=== PATIENT | female | born 1990 | race American Indian/Alaskan Native ===

== ENCOUNTER 2017-10-06 02:01 | Emergency (ER) | payer SELFPAY ==
[2017-10-06] MEDS ORDERED: MOTRIN ONE (02:45)
[2017-10-06 02:48] VITALS: BP 137/86
[2017-10-06] MEDS ORDERED: MOTRIN PO ONE (02:48)
--- NOTE | 2017-10-06 05:05 | Emergency Department Report ---
HPI - General Chief Complaint: Dental/Oral Time Seen by Provider: 10/06/17 04:55 ED Past Medical Hx - Past Medical History Previous Medical History?: No - Surgical History Past Surgical History?: No - Social History Smoking Status: Current Every Day Smoker Substance Use Type: None ED Review of Systems ROS: Stated complaint: SEVERE TOOTHACHE Other details as noted in HPI Physical Exam - Physical Exam Vital Signs: Vital Signs 10/06/17 02:37 Temperature 98.0 F Pulse Rate 99 H Respiratory 20 Rate Blood Pressure 137/86 [Right] O2 Sat by Pulse 100 Oximetry ED Course Vital Signs 10/06/17 02:37 Temperature 98.0 F Pulse Rate 99 H Respiratory 20 Rate Blood Pressure 137/86 [Right] O2 Sat by Pulse 100 Oximetry Critical care attestation.: If time is entered above; I have spent that time in minutes in the direct care of this critically ill patient, excluding procedure time. ED Disposition Condition: Stable Referrals: PRIMARY CARE, [Primary Care Provider] - 3-5 Days
== END 2017-10-06 07:20 | disposition left against medical advice (07) ==
LOC: ED 02:01
DX: K08.89 Other specified disorders of teeth and supporting structures (principal); Z53.21 Procedure and treatment not carried out due to patient leaving prior to being seen by health care provider